=== PATIENT | female | born 1985 | race Caucasian/White ===

== ENCOUNTER 2022-02-10 12:51 | Outpatient (RCR) | payer OTHER, SELFPAY | END 2022-02-10 23:59 | disposition home or self-care (01) | LOC: HO.PHPA 12:51 | PROVIDERS: Visit Provider Psychiatry & Neurology Psychiatry | DX: F31.4 Bipolar disorder, current episode depressed, severe, without psychotic features (principal); F43.12 Post-traumatic stress disorder, chronic; F41.1 Generalized anxiety disorder; F10.20 Alcohol dependence, uncomplicated | CPT/HCPCS: 90791 ==

== ENCOUNTER 2023-10-23 17:47 | Emergency (ER) | payer OTHER, SELFPAY ==
[2023-10-23 17:53] VITALS: BP 118/71; PULSE 80; O2SAT 97
--- NOTE | 2023-10-23 18:16 | ED.GENADULT ---
HPI - General Adult General Chief complaint: Medical Clearance Stated complaint: MED CLEARANCE Time Seen by Provider: 10/24/23 00:57 Source: patient and RN notes reviewed Mode of arrival: ambulatory Limitations: no limitations History of Present Illness HPI narrative: This is a 37-year-old female, with a history of polysubstance abuse, presenting to the emergency department for medical clearance to return back to her sober living facility. She states that she is currently staying at [facility] and for relapsed 5 days ago. She states that she used crack cocaine which she smoked. She states that she last used 5 days ago. She is feeling well, no headaches, chest pain, shortness of breath, abdominal pain, nausea, vomiting or diarrhea. No other complaints or concerns at this time. MD complaint: Medical clearance Relieving factors: none Exacerbating factors: none Associated symptoms: denies other symptoms Treatments prior to arrival: none Related Data Allergies Allergy/AdvReac Type Severity Reaction Status Date / Time naproxen Allergy Hives Verified 10/23/23 18:19 Review of Systems Review of Systems: Yes all other systems are reviewed and are negative [facility] Social History Social History Household Members: Family Smoked in Last 30 Days: Yes Use of substances other than those prescribed or required for medical reasons: Yes Advance Directives: No Advance Directives Information Provided: No Patient : No Physical Exam ED Vital Signs: Vital Signs - 24 hr 10/23/23 18:19 10/24/23 02:12 Temperature 98.9 F Pulse Rate 78 68 Respiratory Rate 18 18 Blood Pressure 118/67 120/76 Pulse Oximetry 97 99 Oxygen Delivery Method Room Air Room Air BMI result Body Mass Index 25.8 Const Other: General: Awake, alert, and oriented X3. No acute distress. HEENT: Normal inspection CVS: Normal heart rate and rhythm. Pulses normal. Respiratory: No respiratory distress Skin: Warm, dry, no rashes noted to exposed skin. Normal skin color. Normal skin turgor. Extremities: Normal to inspection Neuro: Oriented X 3. No motor deficit. No sensory deficit. Course Course Course Narrative: RME: 37 yold male presents to the ED for drug use and [facility] home wants [facility] for medical clearnace Medical Decision Making Medical Decision Making MDM Narrative: This is a 37-year-old female, with a history of polysubstance abuse, presenting to the emergency department seeking medical clearance. She states that she last used crack cocaine on Sunday. She needs a urine drug screen to return back to her sober living facility. She has no physical complaints, vital signs within normal limits. She is clinically sober. Urine drug screen negative. Discussed findings with patient. Patient given return precautions. No other complaints or concerns at this time. Differential Diagnosis Differential Diagnoses: The differential diagnosis associated with the presentation includes Polysubstance abuse, depression, anxiety, overdose Lab Data Labs: Lab Results 10/23/23 Range/Units 20:23 Urine Opiates Screen Not Detected (Not Detect) Urine Fentanyl Screen Not Detected (Not Detect) Ur Barbiturates Screen Not Detected (Not Detect) Ur Phencyclidine Scrn Not Detected (Not Detect) Ur Amphetamines Screen Not Detected (Not Detect) U Benzodiazepines Scrn Not Detected (Not Detect) Urine Cocaine Screen Not Detected (Not Detect) U Marijuana (THC) Screen Not Detected (Not Detect) Discharge Plan Discharge Clinical Impression: Substance abuse Patient Disposition: Home, Self-Care Instructions: Polysubstance Abuse (ED) Additional Instructions: You were seen in the emergency department for medical clearance. Your urine drug screen was negative. Stop using drugs as they will kill you. If any new or worsening symptoms occur including but not limited to chest pain, shortness breath, please return for re-evaluation. Interventions: ED Discharge Assessment Last Done: 10/24/23 02:13 Discharge Date/Time: 10/24/23 02:15
[2023-10-23 18:19] VITALS: BP 118/67; PULSE 78; RESP 18; TEMP 37.2; O2SAT 97; BMI 25.8
[2023-10-23 20:43] LABS: Amphetamine Screen Urine Not Detected (Not Detect); Barbiturates, Urine Not Detected (Not Detect); Benzodiazepines Screen Urine Not Detected (Not Detect); Cannabinoid Screen Urine Not Detected (Not Detect); Cocaine Screen Urine Not Detected (Not Detect); Fentanyl, urine Not Detected (Not Detect); Opiate Screen Urine Not Detected (Not Detect); Phencyclidine Screen Urine Not Detected (Not Detect)
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
--- OUTSIDE RECORDS SUMMARY | 2023-10-24 00:16 | XMS_ITS | Continuity of Care Document ---
Author Name Unknown Organization [facility] [employer] [facility] Address [address], [address] [place] [address]- Care Team Providers Care Inbound Sales Advisor Name Role Phone Shaila TUCKER, Christianne Zee Primary Care Physician Encounter [facility] Date(s): 07/04/23 - 08/03/23 [facility] [employer] [employer] [facility] [address] [place] [address]- Attending Physician: Jacquelin Grewal Admitting Physician: AdmJacquelin méndez Referring Physician: AdmtrJacquelin Allergies, Adverse Reactions, Alerts Substance Reaction Severity Status naproxen RASH Persistent Severe Active Aleve Active Immunizations Given and Recorded Vaccine Date Status Refusal Reason SARS-CoV-2 (COVID-19) mRNA BNT-162b2 vac 04/01/21 Recorded SARS-CoV-2 (COVID-19) mRNA BNT-162b2 vac 03/10/21 Recorded influenza virus vaccine, inactivated 08/04/20 Give n tetanus/diphtheria/pertussis, acel(Tdap) 08/04/20 Given Measles/Mumps/Rubella Virus Vaccine 01/05/17 Recor ded Measles/Mumps/Rubella Virus Vaccine 12/07/16 Recor ded Medications Abilify 2 mg oral tablet 2 mg, 1, tablet, By Mouth, Daily in AM, # 30 tablet, Refills 0, Tot. Refills 0, Maintenance, 07/06/22 13:04:00 EDT, Route to Pharmacy Electronically, [facility]/pharmacy #[id number], Partial fill upon patient request if the [...] 0 Refills, Maintenance, 07/06/22 13:04:00 EDT, Tablet, [facility]/pharmacy #1234, Partial fill upon patient request if the prescription is for a schedule II opioid drug., 178, cm, 07/06/22 8:49:0... Start Date: 07/06/22 Status: Ordered Claritin 10 mg oral tablet 10 mg, 1, tablet, By Mouth, Daily, # 30 tablet, Refills 0, Tot. Refills 0, Maintenance, 07/06/22 13:05:00 EDT, Route to Pharmacy Electronically, [facility]/pharmacy #1234, Partial fill upon patient request if the prescription is for a schedule II opioid drug... Start Date: 07/06/22 Status: Ordered folic acid 1 mg oral tablet 1 mg, 1, tablet, By Mouth, Daily, # 30 tablet, Refills 0, Tot. Refills 0, Maintenance, 07/06/22 13:01:00 EDT, Route to Pharmacy Electronically, [facility]/pharmacy #1234, 178, cm, 07/06/22 8:49:00 EDT, Height, 80.9, kg, 06/30/22 16:02:00 EDT, Dry Weight Start Date: 07/06/22 Status: Ordered LaMICtal 25 mg oral tablet 50 mg, 2, tablet, By Mouth, Daily at bedtime, # 60 tablet, Refills 0, Tot. Refills 0, Maintenance, 07/06/22 13:05:00 EDT, Route to Pharmacy Electronically, [facility]/pharmacy #1234, Partial fill upon patient request if the prescription is for a schedule II... Start Date: 07/06/22 Status: Ordered multivitamin with minerals Antioxidant Multiple Vitamins and Minerals oral tablet 1 tablet, By Mouth, Daily, # 30 tablet, 0 Refills, Maintenance, 06/02/20 10:48:00 EDT, Tablet, [facility]/pharmacy #1234, 1 tablet By Mouth Daily, 178, cm, 06/01/20 21:08:00 EDT, Height, 67, kg, 05/31/20 15:58:00 EDT, Dry Weight Start Date: 06/02/20 Status: Ordered NAC 500 mg oral capsule 1 capsule = 500 mg, By Mouth, Daily, # 30 capsule, 0 Refills, Maintenance, 07/12/22 11:48:00 EDT, Capsule, [facility]/pharmacy #1234, Partial fill upon patient request if [...] Maintenance,06/02/20 10:47:00 EDT, Route to Pharmacy Electronically, [facility]/pharmacy #1234, 178, cm, 06/01/20 21:08:00 EDT, Height, [...] 01/10/22 11:28:00 EDT, Route to Pharmacy Electronically, [facility]/pharmacy #1234, Partial fill upon patient request if [...] Care team information Care Team Personnel Name: Shaila TUCKER, Christianne Zee Position: [facility] PCO Associate Professional Member Role: PCP Address: Address: [address] [place] [id number]- Name: Darin Danielle RN Position: S RN Member Role: Primary Care Nurse Name: Megan Bean RN Position: S RN Member Role: Primary Care Nurse Care Team Related Persons Name: ENA ECHAVARRIA Address: home [address] [place] [address] Name: QUTEA DOVER Name: HERLINDA WEST Address: home [address] [place] [address]
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
--- OUTSIDE RECORDS SUMMARY | 2023-10-24 00:16 | XMS_ITS | Continuity of Care Document ---
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 Role Phone Shaheed COOK, Jolene Baptiste Primary Care Physician Encounter 10/11/20 - 11/10/20 [facility] and [address] [address] Attending Physician: Jacquelin Grewal Admitting Physician: AdmJacquelin méndez Referring Physician: Admtr, Ar8 Allergies, Adverse Reactions, Alerts Substance Reaction Severity [...] 06/02/20 10:47:00 EDT, [id number], cm, 06/01/20 21:08:00 EDT, Height, 67, kg, 05/31/20 15:58:00 EDT, Dry Weight Start Date: 06/02/20 Status: Ordered gabapentin 600 mg oral tablet 1 tablet = 600 mg, By Mouth, 4 times a day, # 120 tablet, 0 Refills, Maintenance, 06/02/20 10:47:00EDT, [id number], 178, cm, 06/01/20 21:08:00 EDT, Height, 67, kg, 05/31/20 15:58:00 EDT, Dry Weight Start Date: 06/02/20 Status: Ordered meloxicam 7.5 mg oral tablet 1 tablet, By Mouth, Daily, X21 DAYS., # 21 tablet, 0 Refills, Maintenance, 10/12/20 15:42:00 EST, [id number], 178, cm, 08/04/20 8:31:00 EDT, Height, 73, kg, 06/29/20 18:02:00 EDT, Dry Weight Start Date: 10/12/20 Status: Ordered multivitamin with minerals Antioxidant Multiple Vitamins and Minerals oral tablet 1 tablet, By Mouth, Daily, # 30 tablet, 0 Refills, Maintenance, 06/02/20 10:48:00 EDT, Tablet, [facility]/pharmacy #1234, 1 tablet By Mouth Daily, 178, [...] 10:47:00 EDT, Route to Pharmacy Electronically, [facility]/pharmacy #1234, 178, cm, 06/01/20 21:08:00 EDT, Height, 67, kg, 05/31/20 15:58:00 EDT, Dry... Start Date: 06/02/20 Status: Ordered PROzac 40 mg oral capsule 1 capsule = 40 mg, By Mouth, Daily in AM, # 30 capsule, 0 Refills, Maintenance, 06/02/20 10:47:00 EDT, Capsule, [facility]/pharmacy #1234, 178, cm, 06/01/20 21:08:00 EDT, Height, 67, kg, 05/31/20 15:58:00 EDT, Dry Weight Start Date: 06/02/20 Status: Ordered SEROquel 100 mg oral tablet 100 mg, 1, tablet, By Mouth, Daily at bedtime, # 30 tablet, Refills 0, Tot. Refills 0, Maintenance,06/02/20 10:48:00 EDT, [facility], 178, cm, 06/01/20 21:08:00 EDT, Height, 67, kg, 05/31/20 15:58:00 EDT, Dry... Start Date: 06/02/20 Status: Ordered SEROquel 25 mg oral tablet 50 mg, 2, tablet, By Mouth, 2 times a day, PRN, # 60 tablet, Refills 1, Tot. Refills 1, Maintenance, Anxiety, 06/02/20 10:48:00 EDT, [id number], 178, cm, 06/01/20 21:08:00 EDT, Height, 67, kg, 05/31/20 15:58:0... Start Date: 06/02/20 Status: Ordered thiamine 100 mg oral tablet 100 mg, 1, tablet, By Mouth, Daily, # 30 tablet, Refills 0, Tot. Refills 0, Maintenance, 06/02/20 10:48:00 EDT, Route to Pharmacy Electronically, [facility]/pharmacy #1234, 178, cm, 06/01/20 21:08:00 EDT, Height, 67, kg, 05/31/20 15:58:00 EDT, Dry Weight Start Date: 06/02/20 Status: Ordered traZODone 150 mg oral tablet 1 tablet = 150 mg, By Mouth, Daily at bedtime, # 30 tablet, 0 Refills, Maintenance, 06/02/20 10:49:00 EDT, Tablet, [facility]/pharmacy #1234, 178, cm, 06/01/20 21:08:00 EDT, Height, 67, kg, 05/31/20 15:58:00 EDT, Dry Weight Start Date: 06/02/20 Status: Ordered Trileptal 300 mg oral tablet 900 mg, 3, tablet, By Mouth, 2 times a day, # 180 tablet, Refills 0, Tot. Refills 0, Maintenance, 06/02/20 10:47:00 EDT, Route to Pharmacy Electronically, [facility]/pharmacy #1234, 178, cm, 06/01/20 21:08:00 EDT, Height, 67, kg, 05/31/20 15:58:00 EDT, Dry W... Start Date: 06/02/20 Status: Ordered Vitamin B12 1000 mcg oral tablet 1 tablet = 1,000 mcg, By Mouth, Daily, # 30 tablet, 0 Refills, Maintenance, 06/02/20 10:47:00 EDT, Tablet, [facility]/pharmacy #1234, 178, cm, 06/01/20 21:08:00 EDT, Height, 67, kg, 05/31/20 15:58:00 EDT, Dry Weight Start Date: 06/02/20 Status: Ordered vitamin E 400 iu oral capsule 1 capsule = 400 International_Units, By Mouth, Daily, # 100 capsule, 0 Refills, Maintenance, 06/02/20 10:48:00 EDT, Capsule, [facility]/pharmacy #1234, 178, cm, 06/01/20 21:08:00 EDT, Height, [...]
--- OUTSIDE RECORDS SUMMARY | 2023-10-24 00:16 | XMS_ITS | Continuity of Care Document ---
Author Name Unknown Organization [facility] ter Address [address] [place] [id number]- Care Team Providers Care Tig Welder Name Role Phone Jolene Hummel MD Primary Care Physician Encounter [facility] Date(s): 11/13/19 - 11/13/[address] [address]- [facility] Attending Physician: Jolene Hummel MD Allergies, Adverse Reactions, Alerts Substance Reaction Severity Status naproxen RASH Persistent Severe Active Aleve Active Medications busPIRone 15 mg oral tablet 1 tablet = 15 mg, By Mouth, 3 times a day, 0 Refills, Maintenance, 05/29/19 11:07:13 EDT Start Date: 05/29/19 Status: Ordered Campral = 666 mg, By Mouth, 3 times a day, 0 Refills, Maintenance, 07/15/19 13:43:45 EDT Start Date: 07/15/19 Status: Ordered Disulfiram By Mouth, Daily, Refills 0, Maintenance, 07/15/19 13:43:05 EDT Start Date: 07/15/19 Status: Ordered gabapentin 600 mg oral tablet 1 tablet = 600 mg, By Mouth, 3 times a day, 0 Refills, Maintenance, 01/28/19 18:26:20 EDT Start Date: 01/28/19 Status: Ordered Imitrex 25 mg oral tablet 1 tablet = 25 mg, By Mouth, Once, PRN as needed for migraine headache, 0 Refills, Maintenance, 05/29/19 12:13:45 EDT Start Date: 05/29/19 Status: Ordered LORazepam 0.5 mg oral tablet 1 tablet = 0.5 mg, By Mouth, 2 times a day, PRN as needed for anxiety, for 7 days, # 12 tablet, 0 Refills, Acute 11/20/19 16:12:00 EST, 11/13/19 16:12:00 EST, Tablet, [facility]/pharmacy #1234, 178, cm, 11/13/19 15:37:00 EST, Height, 90.468, kg, 08/08/19 13:... Start Date: 11/13/19 Stop Date: 11/20/19 Status: Ordered mupirocin 2% topical cream 1 application, Topically, 3 times a day, PRN skin infection, # 30 Gm, 1 Refills, Maintenance, 07/09/19 10:44:27 EDT, Cream, 1 application Topically 3 times a day,PRN:skin infection Start Date: 07/09/19 Status: Ordered Nicorelief 2 mg oral transmucosal gum 1 each = 2 mg, Chew, Every 2 hours, PRN as needed for smoking cessation, as directed on package labeling, # 160 each, 1 Refills, Maintenance, 07/15/19 14:10:56 EDT, Gum Start Date: 07/15/19 Status: Ordered ParaGard 01/28/2016 IUD placement, 0 Refills, Maintenance, 06/05/19 10:28:19 EDT Start Date: 06/05/19 Status: Ordered prazosin 2 mg oral capsule 3 capsule = 6 mg, By Mouth, Daily at bedtime, 0 Refills, Maintenance, 02/20/19 9:28:38 EDT Start Date: 02/20/19 Status: Ordered PROzac 40 mg oral capsule 1 capsule = 40 mg, By Mouth, Daily in AM, 0 Refills, Maintenance, 02/20/19 9:29:19 EDT Start Date: 02/20/19 Status: Ordered SEROquel 25 mg oral tablet 25 mg, 1, tablet, By Mouth, 2 times a day, PRN, As needed for anxiety and sleep, # 30 tablet, Refills 0, Tot. Refills 0, Maintenance, Anxiety, 06/05/19 10:59:51 EDT, Route to Pharmacy Electronically,[id number], [facility]... Start Date: 06/05/19 Status: Ordered traZODone 150 mg oral tablet 1 tablet = 150 mg, By Mouth, Daily at bedtime, PRN Sleep, 0 Refills, Maintenance, 01/28/19 18:31:09EDT Start Date: 01/28/19 Status: Ordered Trileptal 600 mg oral tablet 1.5 tablet = 900 mg, By Mouth, 2 times a day, 0 Refills, Maintenance, 02/20/19 9:27:45 EDT Start Date: 02/20/19 Status: Ordered Vistaril pamoate 50 mg oral capsule 1 capsule = 50 mg, By Mouth, 4 times a day, PRN for anxiety, 0 Refills, Maintenance, 01/28/19 18:29:25 EDT, Capsule Start Date: 01/28/19 Status: Ordered Problem List Condition Effective Dates [...]
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
[2023-10-24 02:12] VITALS: BP 120/76; PULSE 68; RESP 18; O2SAT 99
== END 2023-10-24 02:15 | disposition home or self-care (01) ==
PROVIDERS: Physician Assistant; Emergency Provider Internal Medicine
DX: Z02.83 Encounter for blood-alcohol and blood-drug test (principal); F19.10 Other psychoactive substance abuse, uncomplicated
CPT/HCPCS: 80307; 99282; 99284